=== PATIENT | female | born 1985 | race Caucasian/White ===

== ENCOUNTER 2017-07-17 08:17 | Emergency (ER) | payer BC, OTHER ==
[~2017-07-17] VITALS: Ht 162.6 cm; Wt 151.1 kg
[~2017-07-17 08:17] MED LIST: PRED20TA PO
[2017-07-17 08:22] VITALS: TEMP 36.4; Ht 162.6 cm; Wt 151.1 kg
[2017-07-17] MEDS ORDERED: DOXY1TAB6 PO (08:37)
[2017-07-17] MEDS ORDERED: PLQ200 PO (08:37)
[2017-07-17] MEDS ORDERED: FAMOTIDINE 20 MG TAB PO STA (08:43)
[2017-07-17] MEDS ORDERED: GI COCKTAIL PO STA (08:43)
[2017-07-17] MEDS ORDERED: SUCRALFATE 1 GM TAB PO STA (08:43)
--- NOTE | 2017-07-17 08:45 | EMERGENCY ROOM VISIT NOTE ---
History Report prepared by Leann: Chase Lazar Under the Supervision of: Dr. Emigdio Maria M.D. First contact with patient: 08:37 Chief Complaint: ABDOMINAL PAIN Stated Complaint: SEVERE ABD PAIN CHEST BACK PAIN Nursing Triage Summary: pt reports sharp upper gastric pain for one week, taking deep breaths to get through it. pt reports it happens after she takes her "lymes" medication or when she eats with diffuse back pain over time History of Present Illness The patient is a 32 year old female who presents to the Emergency Room with complaints of worsening abdominal pain that the patient has been experiencing for the past month. She describers her abdominal pains as "sharp" and notes that they have worsened significantly in the past week. Her pain is worsened by sitting up, eating, and taking deep breaths. The pain is improved laying flat. The patient is currently on Doxycycline for Lyme's Disease. Source of History: patient Onset: 1 month Position: abdomen Quality: sharp Timing: worsening Modifying Factors (Worsening): eating, breathing Modifying Factors (Relieving): other (lying down) Review of Systems See HPI for pertinent positives & negatives. A total of 10 systems reviewed and were otherwise negative. Past Medical & Surgical Medical Problems: (1) Morbid obesity with BMI of 50.0-59.9, adult Surgical Problems: (1) Hx of anterior cruciate ligament tear reconstruction (2) Hx of appendectomy (3) S/P ACL repair (4) S/P appendectomy Family History Cancer Diabetes mellitus Heart disease Social History Smoking Status: Never Smoker Alcohol Use: occasionally Housing Status: lives with roommate Occupation Status: employed Current/Historical Medications Scheduled Doxycycline Hyclate (Doxycycline Hyclate), 100 MG PO BID Famotidine (Pepcid), 40 MG PO HS Hydroxychloroquine Sulfate (Hydroxychloroquine Sulfat), 200 MG PO BID Scheduled PRN Oxycodone/Acetaminophen 5MG/325MG (Percocet 5MG/325MG), 1-2 TAB PO Q4H PRN for Pain Allergies Coded Allergies: No Known Allergies (Unverified , 07/17/17) Physical Exam Vital Signs Date Time Temp Pulse Resp B/P (MAP) Pulse Ox O2 Delivery O2 Flow Rate FiO2 07/17/17 14:36 62 18 144/75 95 07/17/17 13:28 67 18 130/72 97 Room Air 07/17/17 12:39 79 18 122/71 97 Room Air 07/17/17 10:53 80 18 112/68 99 Room Air 07/17/17 10:27 59 07/17/17 10:22 59 20 139/77 97 Room Air 07/17/17 08:22 36.4 79 18 137/95 96 Room Air Physical Exam GENERAL: Patient is a healthy-appearing well-nourished female HEAD: Normocephalic atraumatic EYES: Ocular movements intact pupils equal and react to light OROPHARYNX mucous membranes are moist no exudates present no erythema or edema present NECK: Supple no nuchal rigidity CHEST: Good equal expansion LUNGS: Clear and equal to auscultation CARDIAC: Normal S1 and S2 ABDOMEN: Soft, tender in epigastric area no guarding BACK: No CVA tenderness EXTREMITIES: No pain upon palpation normal muscle strength in all groups no clubbing cyanosis or edema NEURO: Patient is following commands is answering questions appropriately. Alert and oriented x3 Cranial Nerves 2-12 grossly intact Medical Decision & Procedures ER Provider Diagnostic Interpretation: CT SCAN OF THE ABDOMEN AND PELVIS WITH IV CONTRAST CLINICAL HISTORY: Left upper quadrant abdominal pain. COMPARISON STUDY: Abdominal CT dated 07/21/2015. TECHNIQUE: Following the IV administration of 94 cc of Optiray 320, CT scan of the abdomen and pelvis is performed from the lung bases to the proximal femora. Images are reviewed in the axial, sagittal, and coronal planes. IV contrast was administered without complication. A dose lowering technique was utilized adhering to the principles of ALARA. CT DOSE: 1160.31 mGycm FINDINGS: Lung bases: The heart is normal in size and without pericardial effusion. The lung bases are clear noting dependent atelectasis. Liver: The contrast-enhanced liver is normal in size, contour, and attenuation. There is no intrahepatic biliary ductal dilatation. The hepatic veins and portal veins are patent. Gallbladder: Unremarkable. Spleen: Normal in size and attenuation. Pancreas: Unremarkable. Adrenal glands: Unremarkable. Kidneys: The contrast enhanced kidneys are normal in size and without hydronephrosis. The kidneys enhance symmetrically. Abdominal vasculature: The abdominal aorta is normal in course and caliber. Bowel: The small bowel and colon are normal in course and caliber. The appendix is not identified and reported surgically absent. Peritoneum: There is no intraperitoneal free air or abdominal ascites. There is a small fat-containing umbilical hernia. Lymphadenopathy: None. Pelvic viscera: The bladder, uterus, and adnexa are normal as visualized. Skeletal structures: A hemangioma is noted in the body of L2. No lytic or blastic lesions are seen. IMPRESSION: There are no acute infectious or inflammatory findings in the abdomen or pelvis. Electronically signed by: Marlo Martinez M.D. 07/17/2017 2:05 PM Dictated Date/Time: 07/17/2017 2:02 PM ABDOMINAL ULTRASOUND, RIGHT UPPER QUADRANT HISTORY: Right upper quadrant abdominal pain.. COMPARISON: Abdominal ultrasound 09/04/2015. FINDINGS: Pancreas: The pancreatic tail is obscured by overlying bowel gas. The remaining portions of the pancreas are within normal limits. Liver: The liver is echogenic consistent with fatty change. Mildly enlarged measuring 19 cm in length. Gallbladder: No gallbladder wall thickening. No gallstones. CBD: 4 mm. Right kidney: No hydronephrosis. IMPRESSION: 1. Normal gallbladder. No gallstones. 2. Mild hepatomegaly demonstrating fatty change Electronically signed by: Rigo Hugo M.D. 07/17/2017 10:14 AM Dictated Date/Time: 07/17/2017 10:12 AM PA CHEST WITH ABDOMINAL SERIES CLINICAL HISTORY: Epigastric abdominal pain. Nausea and vomiting. FINDINGS: A PA chest radiograph is compared to study dated 07/21/2015. Examination is degraded by large body habitus. The cardiomediastinal silhouette is unremarkable. The lungs and pleural spaces are clear. No pneumothorax is seen. The bony thorax is grossly intact. Supine and erect abdominal radiographs are correlated with abdominal CT dated 07/21/2015. There is a nonobstructed abdominal bowel gas pattern. Moderate fecal retention is noted in the colon. No evidence of intraperitoneal free air is seen. There are no abnormal abdominal calcifications. The lumbosacral spine and bony pelvis appear intact. IMPRESSION: 1. No active disease in the chest. 2. Nonobstructed abdominal bowel gas pattern. Electronically signed by: Marlo Martinez M.D. 07/17/2017 9:50 AM Dictated Date/Time: 07/17/2017 9:48 AM Laboratory Results 07/17/17 09:00 Red Blood Count 4.40, Mean Corpuscular Volume 92.0, Mean Corpuscular Hemoglobin 31.1, Mean Corpuscular Hemoglobin Concent 33.8, Mean Platelet Volume 9.7, Neutrophils (%) (Auto) 57.2, Lymphocytes (%) (Auto) 33.0, Monocytes (%) (Auto) 6.0, Eosinophils (%) (Auto) 2.0, Basophils (%) (Auto) 1.4, Neutrophils # (Auto) 4.87, Lymphocytes # (Auto) 2.81, Monocytes # (Auto) 0.51, Eosinophils # (Auto) 0.17, Basophils # (Auto) 0.12 07/17/17 09:00 Test 07/17/17 08:55 07/17/17 09:00 Urine Color YELLOW Urine Appearance CLEAR (CLEAR) Urine pH 6.0 (4.5-7.5) Urine Specific [place] 1.014 (1.000-1.030) Urine Protein NEG (NEG) Urine Glucose (UA) NEG (NEG) Urine Ketones NEG (NEG) Urine Occult Blood NEG (NEG) Urine Nitrite NEG (NEG) Urine Bilirubin NEG (NEG) Urine Urobilinogen NEG (NEG) Urine Leukocyte Esterase MODERATE (NEG) Urine WBC (Auto) 10-30 /hpf (0-5) Urine RBC (Auto) 0-4 /hpf (0-4) Urine Hyaline Casts (Auto) 1-5 /lpf (0-5) Urine Epithelial Cells (Auto) >30 /lpf (0-5) Urine Bacteria (Auto) 1+ (NEG) Urine Test NEG (NEG) White Blood Count 8.51 K/uL (4.8-10.8) Red Blood Count 4.40 M/uL (4.2-5.4) Hemoglobin 13.7 g/dL (12.0-16.0) Hematocrit 40.5 % (37-47) Mean Corpuscular Volume 92.0 fL (80-100) Mean Corpuscular Hemoglobin 31.1 pg (25-34) Mean Corpuscular Hemoglobin Concent 33.8 g/dl (32-36) Platelet Count 377 K/uL (130-400) Mean Platelet Volume 9.7 fL (7.4-10.4) Neutrophils (%) (Auto) 57.2 % Lymphocytes (%) (Auto) 33.0 % Monocytes (%) (Auto) 6.0 % Eosinophils (%) (Auto) 2.0 % Basophils (%) (Auto) 1.4 % Neutrophils # (Auto) 4.87 K/uL (1.4-6.5) Lymphocytes # (Auto) 2.81 K/uL (1.2-3.4) Monocytes # (Auto) 0.51 K/uL (0.11-0.59) Eosinophils # (Auto) 0.17 K/uL (0-0.5) Basophils # (Auto) 0.12 K/uL (0-0.2) RDW Standard Deviation 42.3 fL (36.4-46.3) RDW Coefficient of Variation 12.5 % (11.5-14.5) Immature Granulocyte % (Auto) 0.4 % Immature Granulocyte # (Auto) 0.03 K/uL (0.00-0.02) Anion Gap 7.0 mmol/L (3-11) Est Creatinine Clear Calc Drug Dose 176.5 ml/min Estimated GFR () 135.1 Estimated GFR (Non- 116.6 BUN/Creatinine Ratio 14.3 (10-20) Calcium Level 8.9 mg/dl (8.5-10.1) Total Bilirubin 0.5 mg/dl (0.2-1) Direct Bilirubin < 0.1 mg/dl (0-0.2) Aspartate Amino Transf (AST/SGOT) 13 U/L (15-37) Alanine Aminotransferase (ALT/SGPT) 25 U/L (12-78) Alkaline Phosphatase 59 U/L (45-117) Total Protein 7.8 gm/dl (6.4-8.2) Albumin 3.7 gm/dl (3.4-5.0) Lipase 181 U/L (73-393) Medications Administered Medications (Trade) Dose Ordered Sig/Romain Route Start Time Stop Time Status Last Admin Dose Admin Famotidine (Pepcid Tab) 20 mg NOW STAT PO 07/17/17 08:43 07/17/17 08:45 DC 07/17/17 08:52 20 MG Sucralfate (Carafate Tab) 1 gm NOW STAT PO 07/17/17 08:43 07/17/17 08:45 DC 07/17/17 08:52 1 GM Al Hydroxide/Mg Hydroxide (Maalox Susp) 30 ml STK-MED ONCE .ROUTE 07/17/17 08:50 1/11/18 08:51 DC 07/17/17 08:52 30 ML Lidocaine HCl (Viscous Lidocaine 2% Soln) 20 ml STK-MED ONCE .ROUTE 07/17/17 08:50 07/17/17 08:51 DC 07/17/17 08:52 20 ML Ceftriaxone Sodium (Rocephin Inj) 1 gm NOW STAT IV 07/17/17 09:41 07/17/17 09:42 DC 07/17/17 10:21 1 GM Hydromorphone HCl (Dilaudid Inj) 1 mg NOW STAT IV 07/17/17 10:39 07/17/17 10:42 DC 07/17/17 10:49 1 MG Metoclopramide HCl (Reglan Inj) 10 mg NOW STAT IV 07/17/17 10:39 07/17/17 10:42 DC 07/17/17 10:49 10 MG Ondansetron HCl (Zofran Inj) 4 mg NOW STAT IV 07/17/17 12:23 07/17/17 12:24 DC 07/17/17 12:37 4 MG Hydromorphone HCl (Dilaudid Inj) 1 mg NOW STAT IV 07/17/17 13:14 07/17/17 13:15 DC 07/17/17 13:26 1 MG ED Course 0839: Past medical records reviewed. The patient was evaluated in room B8. A complete history and physical examination was performed. Medical Decision Differential diagnosis: Etiologies such as appendicitis, diverticulitis, PUD, biliary pathology, UTI, pancreatitis, obstruction, mesenteric ischemia, aortic pathology, infections, inflammatory bowel disease, renal colic, as well as others were entertained. This is a 32-year-old female who presents to the emergency department complaining of epigastric pain. The patient was given Pepcid GI cocktail and Carafate in the emergency department. I suspect her epigastric pain is caused by the patient's medication. She has been on it for 3 weeks. Repeat examination revealed no improvement the patient's symptoms therefore an IV was established, labs were work obtained. The patient has normal CBC renal profile liver profile normal lipase. She is not . She does have a large amount of white blood cells in her urine. She based on this fact she was started on IV Rocephin. Ultrasound of the right upper quadrant does not show any acute process therefore the patient was sent for CAT scan of the abdomen and pelvis using shared medical decision-making. This does not show any acute process. Based on this finding I felt that the patient can be safely discharged home however I stressed the need to stop her doxycycline. The patient will follow-up with her infectious disease doctor in [place]. Patient was in agreement with the treatment plan. She'll be placed on Percocet and Pepcid at home. Impression Primary Impression: Epigastric abdominal pain Scribe Attestation The scribe's documentation has been prepared under my direction and personally reviewed by me in its entirety. I confirm that the note above accurately reflects all work, treatment, procedures, and medical decision making performed by me. Departure Information Dispostion Home / Self-Care Prescriptions Oxycodone/Acetaminophen 5MG/325MG (PERCOCET 5MG/325MG) Tab 1-2 TAB PO Q4H Y for Pain, #14 TAB Prov: Emigdio Maria MD 07/17/17 Famotidine (Pepcid) 40 Mg Tab 40 MG PO HS for 30 Days, #30 TAB Prov: Emigdio Maria MD 07/17/17 Referrals Angie Jones PA-C (PCP) Patient Instructions My [facility]
[2017-07-17] MEDS ORDERED: LIDOCAINE HCL 2% VISC SOLN 20 ML UDC ONE (08:50)
[2017-07-17] MEDS ORDERED: ALUMINUM/MAGNESIUM SUSP 30 ML UDC ONE (08:50)
[2017-07-17 09:12] LABS: BASO % 1.4 %; BASO ABS # 0.12 K/uL (0-0.2); EOS ABS # 0.17 K/uL (0-0.5); HEMATOCRIT 40.5 % (37-47); HEMOGLOBIN 13.7 g/dL (12.0-16.0); IG# 0.03 K/uL (0.00-0.02); LYMPH ABS # 2.81 K/uL (1.2-3.4); MEAN CORPUSCULAR HEMOGLOBIN 31.1 pg (25-34); MEAN CORPUSCULAR HGB CONC 33.8 g/dl (32-36); MEAN PLATELET VOLUME 9.7 fL (7.4-10.4); MONO ABS # 0.51 K/uL (0.11-0.59); NEUT % 57.2 %; NEUT ABS # 4.87 K/uL (1.4-6.5); PLATELET COUNT 377 K/uL (130-400); RED CELL DISTRIBUTION WIDTH CV 12.5 % (11.5-14.5); RED CELL DISTRIBUTION WIDTH SD 42.3 fL (36.4-46.3); WHITE BLOOD COUNT 8.51 K/uL (4.8-10.8)
[2017-07-17 09:30] LABS: ALBUMIN 3.7 gm/dl (3.4-5.0); ALT/SGPT 25 U/L (12-78); BLOOD UREA NITROGEN 10 mg/dl (7-18); CALCIUM 8.9 mg/dl (8.5-10.1); CARBON DIOXIDE 25 mmol/L (21-32); CREATININE 0.68 mg/dl (0.60-1.20); GLUCOSE 89 mg/dl (70-99); LIPASE 181 U/L (73-393); POTASSIUM 3.8 mmol/L (3.5-5.1); SODIUM 138 mmol/L (136-145)
[2017-07-17 09:33] LABS: ALKALINE PHOSPHATASE 59 U/L (45-117); AST/SGOT 13 U/L (15-37); TOTAL PROTEIN 7.8 gm/dl (6.4-8.2)
[2017-07-17] MEDS ORDERED: CEFTRIAXONE SOD INJ 1 GM ADDVIAL IV STA (09:41)
--- NOTE | 2017-07-17 09:51 | DIAGNOSTIC IMAGING REPORT ---
PA CHEST WITH ABDOMINAL SERIES CLINICAL HISTORY: Epigastric abdominal pain. Nausea and vomiting. FINDINGS: A PA chest radiograph is compared to study dated 07/21/2015. Examination is degraded by large body habitus. The cardiomediastinal silhouette is unremarkable. The lungs and pleural spaces are clear. No pneumothorax is seen. The bony thorax is grossly intact. Supine and erect abdominal radiographs are correlated with abdominal CT dated 07/21/2015. There is a nonobstructed abdominal bowel gas pattern. Moderate fecal retention is noted in the colon. No evidence of intraperitoneal free air is seen. There are no abnormal abdominal calcifications. The lumbosacral spine and bony pelvis appear intact. IMPRESSION: 1. No active disease in the chest. 2. Nonobstructed abdominal bowel gas pattern. Electronically signed by: Marlo Martinez M.D. 07/17/2017 9:50 AM Dictated Date/Time: 07/17/2017 9:48 AM
--- NOTE | 2017-07-17 10:15 | DIAGNOSTIC IMAGING REPORT ---
ABDOMINAL ULTRASOUND, RIGHT UPPER QUADRANT HISTORY: Right upper quadrant abdominal pain.. COMPARISON: Abdominal ultrasound 09/04/2015. FINDINGS: Pancreas: The pancreatic tail is obscured by overlying bowel gas. The remaining portions of the pancreas are within normal limits. Liver: The liver is echogenic consistent with fatty change. Mildly enlarged measuring 19 cm in length. Gallbladder: No gallbladder wall thickening. No gallstones. CBD: 4 mm. Right kidney: No hydronephrosis. IMPRESSION: 1. Normal gallbladder. No gallstones. 2. Mild hepatomegaly demonstrating fatty change Electronically signed by: Rigo Hugo M.D. 07/17/2017 10:14 AM Dictated Date/Time: 07/17/2017 10:12 AM
[2017-07-17] MEDS ORDERED: METOCLOPRAMIDE HCL INJ 5 MG/ML 2 ML VIAL IV STA (10:39)
[2017-07-17] MEDS ORDERED: HYDROmorphone INJ 1 MG/ML SYR IV STA ×2 (10:39→13:14)
[2017-07-17] MEDS ORDERED: ONDANSETRON INJ 2 MG/ML 2 ML VIAL IV STA (12:23)
[2017-07-17] MEDS ORDERED: OPTIRAY 320 IV PRN (13:45)
--- NOTE | 2017-07-17 14:07 | DIAGNOSTIC IMAGING REPORT ---
CT SCAN OF THE ABDOMEN AND PELVIS WITH IV CONTRAST CLINICAL HISTORY: Left upper quadrant abdominal pain. COMPARISON STUDY: Abdominal CT dated 07/21/2015. TECHNIQUE: Following the IV administration of 94 cc of Optiray 320, CT scan of the abdomen and pelvis is performed from the lung bases to the proximal femora. Images are reviewed in the axial, sagittal, and coronal planes. IV contrast was administered without complication. A dose lowering technique was utilized adhering to the principles of ALARA. CT DOSE: 1160.31 mGycm FINDINGS: Lung bases: The heart is normal in size and without pericardial effusion. The lung bases are clear noting dependent atelectasis. Liver: The contrast-enhanced liver is normal in size, contour, and attenuation. There is no intrahepatic biliary ductal dilatation. The hepatic veins and portal veins are patent. Gallbladder: Unremarkable. Spleen: Normal in size and attenuation. Pancreas: Unremarkable. Adrenal glands: Unremarkable. Kidneys: The contrast enhanced kidneys are normal in size and without hydronephrosis. The kidneys enhance symmetrically. Abdominal vasculature: The abdominal aorta is normal in course and caliber. Bowel: The small bowel and colon are normal in course and caliber. The appendix is not identified and reported surgically absent. Peritoneum: There is no intraperitoneal free air or abdominal ascites. There is a small fat-containing umbilical hernia. Lymphadenopathy: None. Pelvic viscera: The bladder, uterus, and adnexa are normal as visualized. Skeletal structures: A hemangioma is noted in the body of L2. No lytic or blastic lesions are seen. IMPRESSION: There are no acute infectious or inflammatory findings in the abdomen or pelvis. Electronically signed by: Marlo Martinez M.D. 07/17/2017 2:05 PM Dictated Date/Time: 07/17/2017 2:02 PM
[2017-07-17] MEDS ORDERED: FAMO40TA6 PO (14:20)
[2017-07-17] MEDS ORDERED: OXYC-57 PO (14:20)
[2017-07-17 14:36] VITALS: BP 144/75; PULSE 62; O2SAT 95
== END 2017-07-17 14:37 | disposition home or self-care (01) ==
LOC: C.EDB 08:18
DX: R10.13 Epigastric pain (principal); E66.01 Morbid (severe) obesity due to excess calories; D72.829 Elevated white blood cell count, unspecified; Z68.43 Body mass index [BMI] 50.0-59.9, adult; Z83.3 Family history of diabetes mellitus; Z82.49 Family history of ischemic heart disease and other diseases of the circulatory system

== ENCOUNTER → 2017-11-11 | Outpatient (CLI) | payer OTHER ==
[~2017-11-11] MED LIST changes: +DOXY1TAB6 PO; +OXYC-57 PO; +PLQ200 PO; -PRED20TA PO
--- NOTE | 2017-11-11 09:27 | DIAGNOSTIC IMAGING REPORT ---
L KNEE 4 OR MORE HISTORY: 32 years-old Female LEFT KNEE PAIN AND SWELLING acute left knee pain and swelling COMPARISON: None available TECHNIQUE: 5 views of the left knee FINDINGS: There are at least 3 loose bodies measuring up to 6 mm projecting over the region of the posterior intercondylar notch. There is mild tricompartmental marginal spurring. Peripherally sclerotic linear lucency deep to the intercondylar notch of the tibia suggests postsurgical changes or less likely subcortical cystic changes. No acute fracture or dislocation. Mild soft tissue swelling about the knee without large joint effusion. IMPRESSION: 1. No acute fracture or dislocation. 2. Mild tricompartmental marginal spurring about the knee with at least 3 loose bodies within the region of the posterior intercondylar notch measuring up to 6 mm. The above report was generated using voice recognition software. It may contain grammatical, syntax or spelling errors. Electronically signed by: Wagner Hull M.D. 11/11/2017 9:26 AM Dictated Date/Time: 11/11/2017 9:23 AM
== END | disposition home or self-care (01) ==
LOC: C.RDSM 09:06
PROVIDERS: ATTEND Family Medicine
DX: S89.92XA Unspecified injury of left lower leg, initial encounter (principal); X58.XXXA Exposure to other specified factors, initial encounter

== ENCOUNTER → 2018-02-27 | Outpatient (CLI) | payer OTHER ==
[~2018-02-27] MED LIST changes: -OXYC-57 PO
== END | disposition home or self-care (01) ==
LOC: C.LAB1850 12:12
PROVIDERS: ATTEND Physician Assistant Medical
DX: Z91.018 Allergy to other foods (principal)